=== PATIENT | female | born 1985 | race Caucasian/White ===

== ENCOUNTER 2018-05-16 23:21 | Emergency (ER) | payer MEDICAID ==
[~2018-05-16] VITALS: Ht 162.6 cm; Wt 73.0 kg
[2018-05-16 23:41] VITALS: Ht 162.6 cm; Wt 73.0 kg
[2018-05-17 01:50] VITALS: BP 105/69
== END 2018-05-17 01:50 | disposition home or self-care (01) ==
LOC: ED 23:21
DX: J11.1 Influenza due to unidentified influenza virus with other respiratory manifestations (principal); B34.9 Viral infection, unspecified
CPT/HCPCS: 87804; J1885; Q0162

== ENCOUNTER 2019-05-26 20:45 | Emergency (ER) | payer MEDICAID ==
[~2019-05-26] VITALS: Ht 162.6 cm; Wt 73.0 kg
[2019-05-26 20:51] VITALS: Ht 162.6 cm; Wt 73.0 kg
[2019-05-26 21:42] VITALS: BP 124/82
== END 2019-05-26 21:42 | disposition home or self-care (01) ==
LOC: ED 20:45
DX: G43.909 Migraine, unspecified, not intractable, without status migrainosus (principal)
CPT/HCPCS: J1885; J2001; J2765

== ENCOUNTER 2019-10-01 20:30 | Emergency (ER) | payer MEDICAID, SELFPAY ==
[~2019-10-01] VITALS: Ht 165.1 cm; Wt 71.7 kg
[2019-10-01 20:31] VITALS: Ht 165.1 cm; Wt 71.7 kg
[2019-10-01 22:00] VITALS: BP 106/50
== END 2019-10-01 22:00 | disposition home or self-care (01) ==
LOC: ED 20:30
DX: B34.9 Viral infection, unspecified (principal); G43.909 Migraine, unspecified, not intractable, without status migrainosus
CPT/HCPCS: U0003-CS